=== PATIENT | male | born 1945 | race Caucasian/White ===

== ENCOUNTER 2017-03-01 05:21 | Emergency (ER) | payer MEDICARE ==
[2017-03-01] MEDS ORDERED: Meclizine HCl 25 MG TAB ONE (05:59)
[2017-03-01] MEDS ORDERED: Metoclopramide HCl 10 MG/2 ML VIAL ONE (05:59)
[2017-03-01 06:03] LABS: PTT 26.8 SEC (22.9-36.1)
[2017-03-01 06:18] LABS: #Basophils 0.3 thou/uL (0.0-0.2); #Eosinphils 0.3 thou/uL (0.0-0.7); #Lymphocytes 4.1 thou/uL (1.20-3.40); #Monocytes 1.5 thou/uL (0.11-0.59); #Neutrophils 5.2 thou/uL (1.40-6.50); %Basophils 2.4 % (0.0-1.0); %Eosinophils 2.5 % (0.0-10.0); %Monocytes 13.3 % (0.0-10.0); %Neutrophils 45.7 % (42.0-75.0); Hemoglobin 13.9 g/dL (14.0-18.0); Mean Corpuscular HGB CONC 32.9 g/dL (32.0-36.0); Mean Corpuscular Hemoglobin 28.7 pg (27.0-31.0); Mean Corpuscular Volume 87.4 fl (80.0-94.0); Mean Platelet Volume 9.5 fL (7.4-10.4); Platelet Count 406 thou/uL (130-400); RBC Distribution Width 15.5 % (11.5-14.5); Red Blood Cell (RBC) Count 4.85 mill/uL (4.70-6.10); White Blood Cell (WBC) Count 11.5 thou/uL (4.8-10.8)
[2017-03-01 06:22] LABS: ALT (SGPT) 33 U/L (8-55); AST (SGOT) 28 U/L (5-34); Albumin 4.2 g/dL (3.4-4.8); Alkaline Phosphatase 93 U/L (40-150); Anion Gap 18 mmol/L (10-20); BUN (Urea Nitrogen) 18 mg/dL (8.4-25.7); Bilirubin, Total 0.6 mg/dL (0.2-1.2); CK (CPK) 128 U/L (30-200); Calc. Creatinine Clearance 0 mL/min (70-130); Calcium 9.1 mg/dL (7.8-10.44); Carbon Dioxide 19 mmol/L (23-31); Chloride 109 mmol/L (98-107); Estimated GFR-MDRD 74; Globulin 2.9 g/dL (2.4-3.5); Glucose 163 mg/dL (83-110); Magnesium 2.3 mg/dL (1.6-2.6); Potassium 4.5 mmol/L (3.5-5.1); Protein, Total 7.1 g/dL (5.8-8.1); Sodium 141 mmol/L (136-145)
[2017-03-01 06:28] LABS: CKMB 2.5 ng/mL (0-6.6); Troponin I Less than 0.010 ng/mL (< 0.028)
[2017-03-01] MEDS ORDERED: Sodium Chloride 0.9% 1,000 ML BAG ONE (07:36)
--- NOTE | 2017-03-01 08:05 | RAD ---
UPRIGHT PORTABLE CHEST 1 VIEW: Date: 03/01/17 HISTORY: 71-year-old male with dizziness. FINDINGS: Monitor leads overlie the chest. Atherosclerosis of aorta. Evidence for moderate size hiatal hernia. No confluent pneumonia, overt edema, or pleural effusion. IMPRESSION: Moderate size hiatal hernia. Atherosclerosis of aorta. Borderline cardiomegaly. No confluent pneumoni a or overt edema. POS: [facility]
--- NOTE | 2017-03-01 08:18 | CT ---
PRELIMINARY REPORT/[facility]/EMERGENCY AFTER HOURS PROCEDURE: EXAM: CT Head Without Intravenous Contrast CLINICAL HISTORY: 71 years old, male; Signs and symptoms; Other: Vertigo/nausea with sudden movement TECHNIQUE: Axial computed tomography images of the head/brain without intravenous contrast. COMPARISON: No relevant prior studies available. FINDINGS: Brain: Unremarkable. No hemorrhage. No overt white matter disease. No edema. Ventricles: Normal. Bones/joints: Unremarkable. No acute fracture. Soft tissues: Normal. Sinuses: Unremarkable. Mastoid air cells: Opacification of the left mastoid air cells with some sclerotic changes. Partial o pacification of the right mastoid air cell. IMPRESSION: 1. No evidence of acute intracranial abnormality. 2. Left greater than right mastoiditis with some chronicity. Thank you for allowing us to participate in the care of your patient. Dictated and Authenticated by: Madi Schafer MD 03/01/2017 6:43 AM Central Time ([place] & [place]) FINAL REPORT EMERGENCY AFTER HOURS BRAIN CT WITHOUT IV CONTRAST: Date: 03/01/17 Time: 0610 hours IMPRESSION: No mass, bleed, or other acute intracranial process. Bilateral mastoid opacification, left greater th an right. Report in agreement with preliminary report given on-call by Stephanie. POS: [facility]
[2017-03-01] MEDS ORDERED: Ondansetron ODT 4 MG TAB ONE (08:55)
== END 2017-03-01 08:20 | disposition home or self-care (01) ==
LOC: MADERS 05:21
DX: H83.09 Labyrinthitis, unspecified ear (principal)
CPT/HCPCS: 36415; 70450; 71045; 80053; 82550; 82553; 83735; 83880; 84443; 84484; 85025; 85610; 85730; 93005; 94760; 96361; 96374; J2765; J7050; Q0162